=== PATIENT | male | born 1990 | race Caucasian/White ===

== ENCOUNTER 2016-09-20 16:55 | Emergency (ER) | payer BC, MEDICAID ==
[2016-09-20 17:07] VITALS: BP 149/110
--- NOTE | 2016-09-20 17:24 | EDM.PDOC ---
ED HPI GENERAL MEDICAL PROBLEM - General Chief Complaint: Behavioral/Psych Stated Complaint: EVAL Time Seen by Provider: 09/20/16 17:12 Source of Information: Reports: Patient, Police, RN Notes Reviewed History Limitations: Reports: No Limitations - History of Present Illness INITIAL COMMENTS - FREE TEXT/NARRATIVE: 26-year-old gentleman presents emergency department today for evaluation of suicidal ideation, he is brought in by law enforcement he does admit that he got into a verbal argument with his girlfriend of 10 years they have one child together she had recently moved out of their home together had taken child with and he was upset and said things he couldn't live without her he said he was going to harm himself. When asked if he had a plan he says he does not in the plan now that he's had the opportunity to : Down he admits that his gesture was inappropriate he regrets saying it, he denies any suicidal ideation denies any depression states he's currently just upset over his current social situation - Related Data Allergies Allergy/AdvReac Type Severity Reaction Status Date / Time Penicillins Allergy Rash Verified 09/20/16 17:04 Home Meds: Home Meds NK [No Known Home Meds] 08/14/15 [History] Past Medical History - Past Health History Medical/Surgical History: Denies Medical/Surgical History Social & Family History - Family History Family Medical History: Noncontributory - Tobacco Use Smoking Status *Q: Light Tobacco Smoker Years of Tobacco use: 10 Packs/Tins Daily: 0.5 - Recreational Drug Use Recreational Drug Use: No Drug Use in Last 12 Months: Yes Recreational Drug Type: Reports: Marijuana/Hashish Recreational Drug Use Frequency: Monthly ED ROS GENERAL - Review of Systems Review Of Systems: See Below Constitutional: Reports: No Symptoms HEENT: Reports: No Symptoms Respiratory: Reports: No Symptoms Cardiovascular: Reports: No Symptoms GI/Abdominal: Reports: No Symptoms : Reports: No Symptoms Musculoskeletal: Reports: No Symptoms Skin: Reports: No Symptoms Neurological: Reports: No Symptoms Psychiatric: Denies: Depression, Homicidal Ideation, Suicidal Ideation ED EXAM, BEHAVIORAL HEALTH - Physical Exam Exam: See Below Exam Limited By: No Limitations General Appearance: Alert, WD/WN, No Apparent Distress Respiratory/Chest: No Respiratory Distress Psychiatric: Alert, Normal Affect, Normal Cognition, Normal Mood, Oriented. No : Depressed Mood, Suicidal Plan, Suicidal Thoughts COURSE, BEHAVIORAL HEALTH COMP - Course Vital Signs: Last Vital Signs Temp 99.7 F 09/20/16 17:01 Pulse 106 H 09/20/16 17:01 Resp 16 09/20/16 17:01 BP 149/110 H 09/20/16 17:01 Pulse Ox 98 09/20/16 17:01 Departure - Departure Time of Disposition: 17:24 Disposition: Home, Self-Care 01 Condition: good Clinical Impression: Inappropriate behavior - Discharge Information Forms: ED Department Discharge Additional Instructions: Please followup with your primary care provider in 3-5 days if not better, please call return to the emergency department with worsening of symptoms. - Assessment/Plan Plan: Assessment Acuity = acute Site and laterality = inappropriate comments Etiology =secondary to social situation Manifestations = none Location of injury = home Lab values = none Plan reaffirm that he is not suicidal does not have a plan does not admit to depression discussed the case with law-enforcement they were willing to provide him transportation. Follow up with primary care as needed Patient was in agreement with the plan all questions were answered, they were instructed to return to the emergency department or call for worsening symptoms. This note was dictated using [email or web address] voice recognition software please call with any questions.
== END 2016-09-20 17:36 | disposition home or self-care (01) ==
LOC: JP.ED 16:55
DX: F99 Mental disorder, not otherwise specified (principal); F17.210 Nicotine dependence, cigarettes, uncomplicated; Z88.0 Allergy status to penicillin
CPT/HCPCS: 99282; 99285